=== PATIENT | male | born 1960 | race Caucasian/White ===

== ENCOUNTER 2020-12-16 05:40 | Emergency (ER) | payer OTHER, SELFPAY ==
--- NOTE | ~2020-12-16 | XR_ITS ---
EXAMINATION: XR chest 1V portable EXAM DATE: 12/16/2020 06:52 INDICATION: Cough, abdominal pain. TECHNIQUE: Portable AP frontal chest x-ray was obtained. There is no prior study for comparison. FINDINGS: Scattered bilateral lung nodular densities. Differential diagnosis includes pulmonary metas tases, acute airspace disease/pneumonia. Cardiomediastinal silhouette is normal. There is no pneumoth orax suspected. There are no pleural effusions. There are bony degenerative changes. There is a left- sided portacatheter. IMPRESSION: Scattered pulmonary metastases and/or infection. Clinical correlation. Reviewed, dictated and finalized at location D. RAL DISTRICT CLERK IMPRESSION: Scattered pulmonary metastases and/or infection. Clinical correlat ion.
--- NOTE | ~2020-12-16 | CT_ITS ---
EXAMINATION: CT chest abdomen pelvis wo con DATE: 12/16/2020 10:17 INDICATION: Left lower quadrant abdominal pain. Elevated serum creatinine. History of colon cancer. TECHNIQUE: Computed tomography (CT) of the chest, abdomen, and pelvis was performed without intraveno us contrast. Automated exposure control and iterative reconstruction technique were employed. Exam do se: 2410.13 mGy-cm total exam DLP. COMPARISON: December 16, 2020 portable AP chest: Scattered bilateral pulmonary nodular densities FINDINGS: CHEST CT: There are numerous pulmonary masses scattered throughout both lungs including all lobes, consistent w ith pulmonary metastatic disease. The largest disease is situated in the left lower lobe, measuring u p to 2.5 cm. Bilateral pleural effusions, minimal on the left, moderate on the right. There is associated compress angella atelectasis of the lower lobes, right greater than left. Normal heart size. Mild pericardial effusion. Coronary atherosclerotic calcification. No thoracic aor tic aneurysm. No hilar or mediastinal mass lesion or adenopathy. Calcified right hilar, subcarinal and lower right paraesophageal nodes and calcified right lower lobe pulmonary granuloma consistent with old pulmonary granulomatous disease. ABDOMEN/PELVIS CT: The liver is studded throughout with metastases. Diffuse pancreatic atrophy. No pancreatic mass lesion, calcification or ductal dilatation. Splenomegaly, spleen measuring up to 16 cm vertical dimension. Normal morphology of the adrenal glands. There is a pinpoint nonobstructing lower pole right renal calculus. Left renal atrophy and scarring. Normal caliber of the abdominal aorta. There is mild distal periaortic and aortocaval lymphadenopathy measuring up to 10.6 x 17.7 mm. There is mild bilateral common iliac adenopathy. There is prominent right lateral true pelvis mass or obtur ator lymphadenopathy, measuring up to 3.9 x 4.8 cm approximate maximal dimension. Mild ascites including fluid in both paracolic gutters. The urinary bladder is relatively evacuated. Bilateral fat-containing inguinal hernias, larger on the right. Diffuse idiopathic skeletal hyperostosis of the thoracic spine. Degenerative disc disease of the lowe r cervical spine. Multilevel degenerative disc disease of the lumbar spine, most pronounced at L5-S1. Prominent degener ative change of the lumbar apophyseal joints. Primary lumbar spinal stenosis. IMPRESSION: Extensive pulmonary and hepatic metastatic disease Periaortic and aortocaval lymphadenopathy and prominent apparent right obturator lymphadenopathy vers us lower 2 right pelvic mass Reviewed, dictated and finalized at [facility]. Reviewed, dictated and finalized at location A. CAB DRIVER IMPRESSION: Extensive pulmonary and hepatic metastatic disease Periaortic and aortocaval lymphadenopathy and prominent apparent right obturato r lymphadenopathy versus lower 2 right pelvic mass
[2020-12-16 05:45] VITALS: BP 102/82; PULSE 115; RESP 20; TEMP 36.8; O2SAT 98
--- NOTE | 2020-12-16 06:02 | ED.ABDPAIN ---
HPI - Abdominal Pain General Chief Complaint: Abdominal Pain Stated Complaint: adominal pain Time Seen by Provider: 12/16/20 07:02 Source: patient Mode of arrival: EMS Limitations: no limitations History of Present Illness HPI narrative: 60-year-old man with a history of colon cancer brought to the emergency department tonight for diarrhea and abdominal pain with increasing abdominal girth. Patient states that he has also had fever. Denies vomiting, rash and new cough or cold symptoms , dysuria, hematuria, blood in stools, black stools and chest pain. Patient states the coughing makes his abdominal pain worse. He denies any sick exposures. Was taking chemotherapy but he was placed on hold until he got stronger. He has not eaten since yesterday morning. MD elicited complaint: abdominal pain Onset (ago): day(s) (2) Pain Consistency: constant Location: diffuse Severity: severe Radiation: none Migration to: no migration Exacerbating factors: movement Relieving factors: rest Context: confirms other (colon cancer) Associated symptoms: nausea, diarrhea and fever Related Data Allergies Allergy/AdvReac Type Severity Reaction Status Date / Time glipizide Allergy Unknown Verified 12/18/20 16:59 Review of Systems Constitutional: Constitutional: Denies chills, Reports fever(s) and Reports weakness Eyes: Eyes: Denies change in vision and Denies photophobia ENT: Denies dysphagia, Denies nasal congestion and Denies sore throat Cardiovascular: Cardiovascular: Denies chest pain and Denies radiating jaw, neck or arm pain Respiratory: Respiratory: Reports cough and Denies dyspnea Gastrointestinal: Gastrointestinal: Reports abdominal pain, Reports diarrhea, Reports nausea and Denies vomiting Musculoskeletal: Musculoskeletal: Denies arthralgias and Denies joint swelling Integumentary/Breasts: Skin/Breast: Denies pruritus, Denies erythema and Denies rash Neurologic: Denies vertigo, Denies dizziness and Denies syncope Hematologic/Lymphatic: Hematologic/Lymphatic: Denies easy bleeding and Denies easy bruising Allergic/Immunologic: Allergic/Immunologic: Denies throat swelling and Denies tongue swelling PMFSH Past Medical History Medical History Cerebral aneurysm Colon cancer GERD (gastroesophageal reflux disease) Surgical History Surgical History H/O brain surgery Port-A-Cath in place Family History Family History Mother No significant family history Social History Social History Smoking status: Never smoker Alcohol intake: never Substance use: never Substance use type: does not use Spiritual care concerns: No Exam Const: General: alert Nutritional Appearance: obese Orientation/consciousness: patient oriented x3 Other: Moderate acute distress HENMT: Head: normal to inspection General nose exam: Normal nares present Face and sinus: normal facial exam Mouth: Yes moist mucous membranes Throat: posterior oropharynx normal Eyes: Conjunctivae: conjunctivae normal Pupils: Equal, round and reactive pupils present EOM: EOMs intact bilaterally Resp: Effort & Inspection: normal respiratory effort and not labored Auscultation: clear to auscultation bilaterally, no rales, no rhonchi and no wheezes Cardio: Rate: regular rate Rhythm: regular rhythm Heart sounds: no murmurs GI: Inspection: distended GI Palp: Yes Soft to palpation, Yes Tenderness to palpation present (GI) and Yes Palpable mass present (RUQ) Skin: General skin exam: normal color, no jaundice and no pallor Rashes: no rashes Neuro: General: patient oriented x3, moves all extremities, no focal motor deficits and CN's II-XI intact bilaterally Speech: normal speech Gait exam (Neuro): Normal gait present Extrem: General: normal to inspection and
[2020-12-16] MEDS: ONDANSETRON INJ 4 MG/2 ML VIAL 8 MG IV PUSH (06:18)
[2020-12-16] MEDS: PANTOPRAZOLE SODIUM IV 40 MG VIAL IV PUSH (06:20)
[2020-12-16] MEDS: HEPARIN SOD FLUSH 500 UNITS/5 ML SYRINGE (06:50)
[2020-12-16 06:55] VITALS: BP 111/76; PULSE 104; RESP 20; O2SAT 98
[2020-12-16] MEDS: SODIUM CHLORIDE 0.9% IV 1,000 ML 999 ML IV CONT (07:13)
--- NOTE | 2020-12-16 07:19 | PC.NURSE ---
Report to MARISELA Vasquez
[2020-12-16 08:05] LABS: Hematocrit 37.4 % (40.0-54.0); Hemoglobin 11.4 g/dL (14.0-18.0); Mean Corpuscular HGB Conc 30.5 g/dL (32.0-36.0); Mean Corpuscular Hemoglobin 26.2 pg (27.0-31.0); Mean Platelet Volume 9.6 fl (8.7-11.0); Platelet Count Result 177 K/mm3 (150-420); Red Blood Count 4.35 M/mm3 (4.70-6.10); Red Cell Distribution Width 15.4 % (11.6-14.4)
[2020-12-16 08:17] LABS: INR 1.4; Partial Thromboplastin Time 30.6 SEC (23.90-30.70)
[2020-12-16 08:23] LABS: White Blood Count 24.4 K/mm3 (4.8-10.8)
[2020-12-16 08:26] LABS: Alanine Aminotransferase 67 U/L (16-63); Albumin Level 1.8 g/dL (3.4-5.0); Alkaline Phosphatase 320 U/L (46-116); Anion Gap 10 mmol/L (8-16); Aspartate Amino Transferase 104 U/L (15-37); Bilirubin,Total 1.4 mg/dL (0.00-1.00); Blood Urea Nitrogen 28 mg/dL (7-18); Calcium 7.9 mg/dL (8.5-10.1); Carbon Dioxide 24 mmol/L (21-32); Chloride 98 mmol/L (98-108); Estimated CRCL calculation 42 ml/min; Estimated Glomerular Filt Rate 24; Glucose 203 mg/dL (70-99); Lipase 39 U/L (73-393); Osmolality Calculated 285 mOsm/kg (285-295); Potassium 5.3 mmol/L (3.5-5.1); Sodium 132 mmol/L (136-145); Total Protein 6.6 g/dL (6.4-8.2)
[2020-12-16 08:30] LABS: Band Neutrophils Percent 3 % (0-6); Basophils Percent Manual 0 % (0-1); Eosinophils Absolute Manual 0.97 K/mm3 (0.02-0.5); Eosinophils Percent Manual 4 % (1-6); Lymphocytes Absolute Manual 2.19 K/mm3 (1.1-4.5); Lymphocytes Percent Manual 9 % (18-44); Monocytes Absolute Manual 1.22 K/mm3 (0.1-0.90); Monocytes Percent Manual 5 % (3-9); Neutrophils Percent Manual 79 % (46-73); Platelet Estimate Adequate (Adequate); Total Cells Counted 100
[2020-12-16 08:36] LABS: SARS-CoV-2 Ag Negative (Negative)
--- NOTE | 2020-12-16 10:10 | PC.NURSE ---
PT STATES HE IS UNABLE TO URINATE AND REFUSES URINARY STRAIGHT CATHETER TO OBTAIN URINE SAMPLE.
[2020-12-16] MEDS: SODIUM CHLORIDE 0.9% IV 1,000 ML 250 ML IV CONT (10:17)
[2020-12-16] MEDS: HYDROmorphone HCL INJ (*CRX) 2 MG/ML VIAL 1 MG IM (10:17)
[2020-12-16 11:03] LABS: Reflex Lactic Acid Yes or No Add Lactic
[2020-12-16 12:14] VITALS: O2SAT 98
--- NOTE | 2020-12-16 12:27 | ED.ABDPAIN ---
HPI - Abdominal Pain General Chief Complaint: Abdominal Pain Stated Complaint: adominal pain Time Seen by Provider: 12/16/20 07:02 Source: patient and family Mode of arrival: ambulatory Limitations: no limitations History of Present Illness MD elicited complaint: abdominal pain and other (Patient comes in with history of metastatic colon cancer. He complains of vague abdominal pain and not feeling well, but with no specific symptoms. ) Onset (ago): day(s) (2) Pain Consistency: constant Location: diffuse Severity: severe Quality: aching and fullness Radiation: none Migration to: no migration Exacerbating factors: movement Relieving factors: rest Context: confirms other (colon cancer) Associated symptoms: nausea, diarrhea and fever Related Data Home Medications Medication Instructions Recorded Confirmed aspirin 325 mg PO DAILY 12/16/20 12/16/20 ondansetron 8 mg PO Q8H PRN 12/16/20 12/16/20 pantoprazole 40 mg PO QAM 12/16/20 12/16/20 Allergies Allergy/AdvReac Type Severity Reaction Status Date / Time glipizide Allergy Unknown Verified 12/16/20 05:56 Review of Systems Review of Systems: All systems reviewed & are unremarkable except as noted in HPI and below Constitutional: Constitutional: Reports no additional constitutional complaints Eyes: Eyes: Reports no additional eye complaints ENT: Reports system reviewed and no additional complaints, except as documented Cardiovascular: Cardiovascular: Reports no additional cardiovascular complaints Respiratory: Respiratory: Reports no additional respiratory complaints Gastrointestinal: Gastrointestinal: Reports as per HPI (complains of vague feeling of fullness and gas pain, and feeling bloated) Genitourinary: Genitourinary: Reports no additional male genitourinary complaints Musculoskeletal: Musculoskeletal: Reports no additional musculoskeletal complaints Integumentary/Breasts: Skin/Breast: Reports system reviewed and no additional complaints, except as docu Neurologic: Reports system reviewed and no additional complaints, except as documented Psychiatric: Psychiatric: Reports no additional psychiatric complaints Endocrine: Endocrine: Reports no additional endocrine complaints Hematologic/Lymphatic: Hematologic/Lymphatic: Reports no additional hematologic/lymphatic complaints Allergic/Immunologic: Allergic/Immunologic: Reports no additional allergic/immunologic complaints PMFSH Past Medical History Medical History Cerebral aneurysm Colon cancer GERD (gastroesophageal reflux disease) Surgical History Surgical History H/O brain surgery Port-A-Cath in place Family History Family History Mother No significant family history Social History Social History Smoking status: Never smoker Substance use: never Living arrangements: with family Exam Narrative: Exam Narrative: Patient comes in complaining of vague abdominal discomfort, and feeling bloated. He has no other significant complaints. Const: General: no acute distress Orientation/consciousness: patient oriented x3 HENMT: Head: normal to inspection Ears: external ears normal General nose exam: Normal external nose present Face and sinus: normal facial exam Mouth: Yes Normal oral and palatal mucosa present and Yes moist mucous membranes Throat: posterior oropharynx normal Eyes: Conjunctivae: conjunctivae normal Pupils: Equal, round and reactive pupils present Neck: Neck: normal visual inspection and no lymphadenopathy Chest: Chest palpation & inspection: normal inspection of the chest Resp: Effort & Inspection: normal respiratory effort Auscultation: clear to auscultation bilaterally Cardio: Rate: regular rate Rhythm: regular rhythm GI: GI Palp: Yes Soft to palpation (large
[2020-12-16 13:04] VITALS: BP 130/70; PULSE 90; RESP 15; O2SAT 92
== END 2020-12-16 13:40 | disposition home or self-care (01) ==
PROVIDERS: Emergency Provider Emergency Medicine; PCP Family Medicine
DX: C18.9 Malignant neoplasm of colon, unspecified (principal); A41.9 Sepsis, unspecified organism; J18.9 Pneumonia, unspecified organism; N17.9 Acute kidney failure, unspecified
CPT/HCPCS: 36415; 71045; 71250; 74176; 80053; 83605; 83690; 85025; 85610; 85730; 87426; 96361; 96372; 96374; 96375; 99283; 99284; C9113; C9803; J1170; J2405; J7030

== ENCOUNTER 2020-12-18 16:22 | Inpatient (IN) | payer OTHER, SELFPAY ==
--- NOTE | ~2020-12-18 | XR_ITS ---
XR chest 1V portable 12/18/2020 18:11 Indication: Shortness of breath Procedure: AP portable chest Comparison: 12/16/2020 Findings: There are scattered nodular densities of the mid and lower lung zone, compatible with known metastases. Pleural effusions not appreciated on current study. Heart size normal. No pleural effusi on or pneumothorax. Portacatheter tip in the SVC. Impression: 1: Scattered bilateral pulmonary nodules, consistent with metastatic disease. Reviewed, dictated and finalized at location A. T SPECIALIST PRODUCT DEMONSTRATOR Impression: 1: Scattered bilateral pulmonary nodules, consistent with metastatic disease.
[2020-12-18 16:52] VITALS: BP 109/65; PULSE 102; RESP 20; TEMP 36.1; O2SAT 97
[2020-12-18] MEDS: SODIUM CHLORIDE 0.9% IV 1,000 ML 999 ML IV CONT (17:17)
[2020-12-18] MEDS: MORPHINE SULFATE (*CRX) 4 MG/ML INJ IV PUSH ×2 (17:17→21:47)
[2020-12-18 17:38] LABS: Hematocrit 43.5 % (40.0-54.0); Mean Corpuscular HGB Conc 32.2 g/dL (32.0-36.0); Mean Corpuscular Hemoglobin 26.7 pg (27.0-31.0); Mean Platelet Volume 9.9 fl (8.7-11.0); Platelet Count Result 228 K/mm3 (150-420); Red Blood Count 5.24 M/mm3 (4.70-6.10)
[2020-12-18 17:58] LABS: Lactic Acid Reflex 8.7 mmol/L (0.4-2.0)
[2020-12-18 18:05] LABS: Albumin Level 1.8 g/dL (3.4-5.0); Alkaline Phosphatase 429 U/L (46-116); Anion Gap 23 mmol/L (8-16); Bilirubin,Total 1.5 mg/dL (0.00-1.00); Blood Urea Nitrogen 74 mg/dL (7-18); Calcium 8.1 mg/dL (8.5-10.1); Carbon Dioxide 10 mmol/L (21-32); Chloride 95 mmol/L (98-108); Estimated CRCL calculation 24 ml/min; Estimated Glomerular Filt Rate 12; Glucose 251 mg/dL (70-99); Lipase 125 U/L (73-393); Osmolality Calculated 295 mOsm/kg (285-295); Potassium 5.6 mmol/L (3.5-5.1); Sodium 128 mmol/L (136-145); Total Protein 6.7 g/dL (6.4-8.2); Troponin I 10.6 ng/L (0.00-60.4)
[2020-12-18 18:07] LABS: Alanine Aminotransferase > 1000 U/L (16-63); Aspartate Amino Transferase > 796 U/L (15-37)
[2020-12-18 18:10] LABS: Add Urine Microscopic? YES; Appearance Urine Sl Cloudy (Clear); Bilirubin Urine 1+ (Negative); Blood Urine Negative (Negative); Color Urine Other (Yellow); Glucose Urine UA Negative (Negative); Ketones Urine Negative (Negative); Leukocyte Esterase Ur Negative (Negative); Nitrate Urine Negative (Negative); Protein Urine Negative (Negative); Specific Grav Ur >= 1.030 (1.010-1.020)
[2020-12-18 18:13] LABS: White Blood Count 41.6 K/mm3 (4.8-10.8)
[2020-12-18 18:16] LABS: Neutrophils Percent Manual 77 % (46-73); Total Cells Counted 100
[2020-12-18 18:17] LABS: Band Neutrophils Percent 10 % (0-6); Basophils Absolute Manual 0.41 K/mm3 (0-0.1); Basophils Percent Manual 1 % (0-1); Eosinophils Absolute Manual 0.83 K/mm3 (0.02-0.5); Eosinophils Percent Manual 2 % (1-6); Lymphocytes Absolute Manual 2.49 K/mm3 (1.1-4.5); Lymphocytes Percent Manual 6 % (18-44); Metamyelocytes Percent 1 %; Monocytes Absolute Manual 1.24 K/mm3 (0.1-0.90); Monocytes Percent Manual 3 % (3-9); Neutrophils Absolute Manual 36.19 K/mm3 (1.3-6.7); Platelet Estimate Adequate (Adequate)
[2020-12-18 18:22] VITALS: BP 121/64; PULSE 101; RESP 20; O2SAT 97
--- NOTE | 2020-12-18 18:22 | ED.ABDPAIN ---
HPI - Abdominal Pain General Chief Complaint: Abdominal Pain Stated Complaint: AMB Source: patient and EMS Mode of arrival: ambulatory Limitations: physical limitation History of Present Illness HPI narrative: this is a 60-year-old male morbidly obese, lives with his mother presents to the emergency department via EMS with some abdominal pain with some watery diarrhea, his abdominal pain started about 4 days ago, was seen on the December with similar complaints. Currently is having diffuse abdominal pain with no nausea or vomiting no chest pain no shortness of breath but has loose stools. The patient currently feels warm but is temperature is 97 ?, patient with a blood pressure of 121/64 with heart rate of 101. Patient had a workup with some CT abdomen 2 days ago which did show that he has some metastatic disease to lung and liver with some scattered nodules in his lungs. The patient lives at home with his mother had ambulate very well and currently having pain in his abdomen that he rates about a 7/10 with no dysuria no hematuria no flank pain. MD elicited complaint: abdominal pain Pertinent past history: other ( History of lung cancer with metastatic disease) Onset (ago): month(s) Pain Consistency: constant Location: diffuse Severity: moderate Pain scale (0-10): 7 Quality: aching Radiation: none Migration to: no migration Exacerbating factors: nothing Relieving factors: nothing Associated symptoms: diarrhea Related Data Home Medications Medication Instructions Recorded Confirmed aspirin 325 mg PO DAILY 12/16/20 12/18/20 ondansetron 8 mg PO Q8H PRN 12/16/20 12/18/20 pantoprazole 40 mg PO QAM 12/16/20 12/18/20 Allergies Allergy/AdvReac Type Severity Reaction Status Date / Time glipizide Allergy Unknown Verified 12/18/20 16:59 Review of Systems Review of Systems: All systems reviewed & are unremarkable except as noted in HPI and below PMFSH Past Medical History Medical History Cerebral aneurysm Colon cancer GERD (gastroesophageal reflux disease) Surgical History Surgical History H/O brain surgery Port-A-Cath in place Family History Family History Mother No significant family history Social History Social History Smoking status: Never smoker Substance use: never Exam Const: General: no acute distress Orientation/consciousness: patient oriented x3 HENMT: Head: normal to inspection Ears: external ears normal Eyes: Conjunctivae: conjunctivae normal Pupils: Equal, round and reactive pupils present EOM: EOMs intact bilaterally Direct Ophthalmoscopy: no photophobia Neck: Neck: normal visual inspection, no lymphadenopathy and no meningeal signs Chest: Chest palpation & inspection: normal inspection of the chest Resp: Effort & Inspection: normal respiratory effort Auscultation: diminished lung sounds Cardio: Rate: regular rate Rhythm: regular rhythm GI: GI Palp: Yes Tenderness to palpation present (GI), Yes Guarding due to palpation present (GI) and Yes Rebound tenderness present Percussion: Yes normal to percussion Urinary Catheter: Urinary Catheter: patent and draining Back/Spine/Pelvis: Back: no CVA tenderness Skin: General skin exam: normal color Rashes: no rashes Neuro: General: patient oriented x3 and moves all extremities Extrem: General: normal to inspection and no pedal edema Psych: Mental Status: mental status grossly normal Course Course Emergency Course: Reassessment of patient patient did had a CT scan that was performed of his abdomen 2 days ago, will not repeat a CT scan during this ER visit advised the patient that we will be admitting him appears to be septic and reviewed his blood work and his x-ray and will continue IV fluids patient
[2020-12-18 18:25] LABS: Bacteria Urine Trace /hpf; RBC Urine 0-2 /hpf (0-2); Squamous Epithelial Cell Urine Few /hpf (Few); WBC Urine 0-3 /hpf (0-3)
[2020-12-18 18:41] LABS: BNP 187 pg/mL (0-100)
--- NOTE | 2020-12-18 18:58 | PC.NURSE ---
called miguel rn, charge nurse for bed placement, pt to go to room 227. awaiting to give report.
[2020-12-18 19:01] VITALS: BP 92/63; PULSE 102; RESP 20; TEMP 36.9; O2SAT 97
--- NOTE | 2020-12-18 19:28 | PC.NURSE ---
pt to floor per stretcher with RN and tech staff.
[2020-12-18 19:58] VITALS: BMI 40.9
[2020-12-18 20:00] VITALS: BP 85/66; PULSE 98; RESP 20; TEMP 35.4; O2SAT 99
[2020-12-18 20:34] LABS: Reflex Lactic Acid Yes or No Add Lactic
[2020-12-18 21:53] LABS: Glucose Point of Care 257 (65-105)
[2020-12-18] MEDS: LACTATED RINGERS 1,000 ML 100 ML IV CONT (21:57)
--- NOTE | 2020-12-18 22:02 | ADMGEN ---
This patient, Aamir Shin, was admitted to 2nd Floor Room 227-2. Patient/family oriented to hospital policies and general routines including ID bracelet, bed and alarms, visiting hours, pain management, procedures, bathroom and other care routines, personal items, smoking policy, room service/diet, and visiting hours. Pt has phone, manager bridge, glasses and top/bottom dentures. Pt requests to go to a skilled nursing on hospice as his mother can no longer care for him. Information on how to activate the Rapid Response Team has been discussed. Patient/Family are encouraged to report perceived risks to care and to ask questions if they do not understand what they are told or what they should do.
[2020-12-18 22:09] LABS: Lactic Acid 8.8 mmol/L (0.4-2.0)
[2020-12-19] VITALS: BP 116/66; PULSE 102; RESP 20; TEMP 36.7; O2SAT 95
[2020-12-19 04:00] VITALS: BP 107/77; PULSE 105; RESP 20; TEMP 36.7; O2SAT 96
[2020-12-19 07:30] VITALS: BP 116/59; PULSE 107; RESP 18; TEMP 35.7; O2SAT 97
[2020-12-19 07:47] LABS: Glucose Point of Care 208 (65-105)
[2020-12-19] MEDS: LACTATED RINGERS 1,000 ML 100 ML IV CONT (08:18)
[2020-12-19] MEDS: PANTOPRAZOLE 40 MG TABLET PO (08:19)
[2020-12-19] MEDS: ASPIRIN 325 MG ENTERIC TABLET PO (08:19)
[2020-12-19 08:24] LABS: Hematocrit 41.6 % (40.0-54.0); Hemoglobin 13.1 g/dL (14.0-18.0); Mean Corpuscular HGB Conc 31.5 g/dL (32.0-36.0); Mean Corpuscular Volume 85.8 fL (78.0-102.0); Mean Platelet Volume 9.6 fl (8.7-11.0); Platelet Count Result 133 K/mm3 (150-420); Red Blood Count 4.85 M/mm3 (4.70-6.10); Red Cell Distribution Width 16.3 % (11.6-14.4)
[2020-12-19 08:29] LABS: White Blood Count 38.9 K/mm3 (4.8-10.8)
--- NOTE | 2020-12-19 08:30 | PC.NURSE ---
Patient awake, alert to self only. Does not follow commands at all. Patient unable to drink from straw. Able to take a couple bites of oatmeal with full assist, swallowed okay, patient did hold liquid in mouth for short amount of time. No coughing noted after swallowing. Patient tried spitting out medication. Answered yes and no questions at time, otherwise does not answer questions. Patient has flat affect.
[2020-12-19 08:44] LABS: Lactic Acid Reflex 5.7 mmol/L (0.4-2.0)
[2020-12-19 09:00] LABS: Albumin Level 1.8 g/dL (3.4-5.0); Alkaline Phosphatase 434 U/L (46-116); Anion Gap 19 mmol/L (8-16); Bilirubin,Total 1.7 mg/dL (0.00-1.00); Blood Urea Nitrogen 83 mg/dL (7-18); Calcium 7.9 mg/dL (8.5-10.1); Carbon Dioxide 13 mmol/L (21-32); Chloride 95 mmol/L (98-108); Estimated CRCL calculation 22 ml/min; Estimated Glomerular Filt Rate 12; Glucose 211 mg/dL (70-99); Osmolality Calculated 295 mOsm/kg (285-295); Potassium 6.2 mmol/L (3.5-5.1); Sodium 127 mmol/L (136-145); Total Protein 6.4 g/dL (6.4-8.2)
[2020-12-19 09:01] LABS: Alanine Aminotransferase > 1000 U/L (16-63); Aspartate Amino Transferase > 796 U/L (15-37)
--- NOTE | 2020-12-19 09:02 | PC.NURSE ---
Ze Chou SULFUR BURNER notified of critical creatnine of 5.0.
[2020-12-19 09:03] LABS: Band Neutrophils Percent 4 % (0-6); Basophils Percent Manual 0 % (0-1); Eosinophils Absolute Manual 0.38 K/mm3 (0.02-0.5); Eosinophils Percent Manual 1 % (1-6); Lymphocytes Absolute Manual 5.83 K/mm3 (1.1-4.5); Lymphocytes Percent Manual 15 % (18-44); Metamyelocytes Percent 2 %; Monocytes Absolute Manual 1.16 K/mm3 (0.1-0.90); Monocytes Percent Manual 3 % (3-9); Myelocytes Percent 1 %; Neutrophils Absolute Manual 30.34 K/mm3 (1.3-6.7); Neutrophils Percent Manual 74 % (46-73); Nucleated Red Blood Cells 2 %; Platelet Estimate Adequate (Adequate); Total Cells Counted 100
[2020-12-19] MEDS: SODIUM CHLORIDE 0.9% IV 500 ML 999 ML IV CONT (10:06)
[2020-12-19] MEDS: SODIUM CHLORIDE 0.9% IV 1,000 ML 150 ML IV CONT ×2 (11:11→18:05)
[2020-12-19 11:20] LABS: Reflex Lactic Acid Yes or No Add Lactic
--- NOTE | 2020-12-19 11:31 | ECG_ITS ---
Measurements Intervals Economy Rate: 106 P: 46 [place]: 185 QRS: -53 QRSD: 96 T: 71 QT: 338 QTc: 450 Interpretive Statements SINUS TACHYCARDIA LEFT ANTERIOR FASCICULAR BLOCK POOR R WAVE PROGRESSION, ANTERIOR LEADS ABNORMAL ECG Electronically Signed On 12-19-2020 12:19:44 DIRECTOR ACCOUNT MANAGEMENT by Miguel Angel Fernandez D.O.
[2020-12-19 11:42] LABS: Glucose Point of Care 216 (65-105)
[2020-12-19] MEDS: SODIUM POLYSTYRENE SULFONONATE 15 GM/60 ML BTL 30 GM PO (12:12)
--- NOTE | 2020-12-19 12:15 | PC.NURSE ---
Patient was able to drink kayexalate with full assist from nurse. Patient unable to eat any of lunch. This nurse attempted to give patient bite of grilled cheese and patient was unable to take bite. ULTIMATE HOOPS TRAINER notified.
[2020-12-19 12:19] LABS: Lactic Acid 5.3 mmol/L (0.4-2.0)
[2020-12-19 12:50] VITALS: BP 120/67; PULSE 105; RESP 22; TEMP 36.8; O2SAT 96
--- NOTE | 2020-12-19 13:49 | PM.IMHP ---
H&P: HPI History of Present Illness Date/Time: 12/19/20 13:49 Chief Complaint: He complains of feeling gassy, and that his abdomen is swollen. Narrative: Aamir Shin is a 60 year old male who I saw Dec 16, 2020. He came in at that time with complaints of vague abdominal discomfort and feeling he was bloated with lots of gas. I had a discussion with the patient and his mother. His mother, Beth Shin, is his decision maker for health care. It appears that he is in acute renal failure. His mother has decided not to treat this, except for medically. She understands that without intervention, and probably dialysis he will within 10 days or so. Review of Systems Constitutional: Constitutional: Reports fatigue and Reports lethargy Eyes: Eyes: Reports no additional eye complaints ENT: Reports system reviewed and no additional complaints, except as documented Cardiovascular: Cardiovascular: Reports no additional cardiovascular complaints Respiratory: Comments: mild shortness of breath Gastrointestinal: Gastrointestinal: Reports bloating Genitourinary: Genitourinary: Reports no additional male genitourinary complaints Musculoskeletal: Musculoskeletal: Reports no additional musculoskeletal complaints Integumentary/Breasts: Skin/Breast: Reports system reviewed and no additional complaints, except as docu Neurologic: Reports system reviewed and no additional complaints, except as documented Psychiatric: Psychiatric: Reports no additional psychiatric complaints PMFSH Past Medical History Medical History Cerebral aneurysm Colon cancer GERD (gastroesophageal reflux disease) Surgical History Surgical History H/O brain surgery Port-A-Cath in place Family History Family History Mother No significant family history Social History Social History Smoking status: Never smoker Alcohol intake: never Substance use: never Substance use type: does not use Spiritual care concerns: No Meds Home Medications and Allergies Home Medications Medication Instructions Recorded Confirmed Type morphine 5 mg PO Q4H #5 ml 12/20/20 Rx Allergies Allergy/AdvReac Type Severity Reaction Status Date / Time glipizide Allergy Unknown Verified 12/18/20 16:59 Vital Signs Vital Signs - 24 hr 12/18/20 16:52 12/18/20 18:22 12/18/20 19:01 Temperature 36.1 C L 36.9 C Pulse Rate 102 H 101 H 102 H Respiratory Rate 20 20 20 Blood Pressure 109/65 121/64 92/63 L Pulse Oximetry 97 97 97 12/18/20 20:00 12/19/20 00:00 12/19/20 04:00 Temperature 35.4 C L 36.7 C 36.7 C Pulse Rate 98 102 H 105 H Respiratory Rate 20 20 20 Blood Pressure 85/66 L 116/66 107/77 Pulse Oximetry 99 95 96 12/19/20 07:30 Temperature 35.7 C L Pulse Rate 107 H Respiratory Rate 18 Blood Pressure 116/59 L Pulse Oximetry 97 Exam Narrative: Exam Narrative: This gentleman appears drowsy, but he will arouse with shaking or shouting at him. He appears comfortable and in no distress. Const: General: no acute distress HENMT: Mouth: Yes moist mucous membranes Eyes: General: appearance normal, both eyes and all related structures Neck: Neck: supple Resp: Effort & Inspection: normal respiratory effort Auscultation: clear to auscultation bilaterally Cardio: Rate: regular rate Rhythm: regular rhythm GI: GI Palp: Yes Soft to palpation (non tender) Skin: General skin exam: normal color Neuro: Other: speech is difficult to understand, but I believe this is his baseline Psych: Mental Status: mental status grossly normal H&P: Results Labs Labs: Short CBC 12/18/20 12/19/20 Range/Units 17:25 08:04 WBC 41.6 H* 38.9 H* (4.8-10.8) K/mm3 Hgb 14.0 13.1 L (14.0-18.0) g/dL Hct 43.5 41.6 (40.0-54.0) % Plt Coun
[2020-12-19 14:25] LABS: SARS-CoV-2 Ag Negative (Negative)
[2020-12-19 15:50] VITALS: BP 104/49; PULSE 106; RESP 22; TEMP 36.8; O2SAT 95
[2020-12-19 17:05] LABS: Glucose Point of Care 195 (65-105)
[2020-12-19 20:00] VITALS: BP 100/62; PULSE 102; RESP 20; TEMP 36.1; O2SAT 95
[2020-12-19 20:43] LABS: Glucose Point of Care 218 (65-105)
[2020-12-20] VITALS: BP 95/60; PULSE 102; RESP 20; TEMP 35.9; O2SAT 99
[2020-12-20] MEDS: SODIUM CHLORIDE 0.9% IV 1,000 ML 150 ML IV CONT ×2 (01:58→09:20)
[2020-12-20 04:00] VITALS: BP 101/53; PULSE 60; RESP 20; TEMP 35.8; O2SAT 97
[2020-12-20] MEDS: SODIUM CHLORIDE 0.9% IV 1,000 ML 999 ML IV CONT (07:50)
[2020-12-20 08:00] VITALS: BP 86/56; PULSE 103; RESP 28; TEMP 36.1; O2SAT 96
[2020-12-20 08:09] LABS: Glucose Point of Care 201 (65-105)
[2020-12-20 09:17] LABS: Hematocrit 34.5 % (40.0-54.0); Hemoglobin 11.2 g/dL (14.0-18.0); Mean Corpuscular HGB Conc 32.5 g/dL (32.0-36.0); Mean Corpuscular Volume 83.1 fL (78.0-102.0); Mean Platelet Volume 10.9 fl (8.7-11.0); Platelet Count Result 111 K/mm3 (150-420); Red Blood Count 4.15 M/mm3 (4.70-6.10)
[2020-12-20 09:22] LABS: White Blood Count 26.3 K/mm3 (4.8-10.8)
[2020-12-20 09:37] LABS: Albumin Level 1.5 g/dL (3.4-5.0); Alkaline Phosphatase 551 U/L (46-116); Anion Gap 20 mmol/L (8-16); Bilirubin,Total 1.8 mg/dL (0.00-1.00); Blood Urea Nitrogen 108 mg/dL (7-18); Calcium 6.9 mg/dL (8.5-10.1); Carbon Dioxide 11 mmol/L (21-32); Chloride 98 mmol/L (98-108); Estimated CRCL calculation 18 ml/min; Estimated Glomerular Filt Rate 10; Glucose 205 mg/dL (70-99); Osmolality Calculated 308 mOsm/kg (285-295); Sodium 129 mmol/L (136-145); Total Protein 5.6 g/dL (6.4-8.2)
[2020-12-20 09:39] LABS: Alanine Aminotransferase > 1000 U/L (16-63); Aspartate Amino Transferase > 796 U/L (15-37); Potassium 6.9 mmol/L (3.5-5.1)
[2020-12-20 09:41] LABS: Band Neutrophils Percent 4 % (0-6); Eosinophils Absolute Manual 0.26 K/mm3 (0.02-0.5); Eosinophils Percent Manual 1 % (1-6); Lymphocytes Absolute Manual 3.15 K/mm3 (1.1-4.5); Lymphocytes Percent Manual 12 % (18-44); Metamyelocytes Percent 1 %; Monocytes Absolute Manual 1.05 K/mm3 (0.1-0.90); Monocytes Percent Manual 4 % (3-9); Neutrophils Absolute Manual 21.56 K/mm3 (1.3-6.7); Neutrophils Percent Manual 78 % (46-73); Nucleated Red Blood Cells 3 %; Total Cells Counted 100
--- NOTE | 2020-12-20 09:41 | PM.DS ---
DS: Admitting Diagnosis Admitting Diagnosis Admitting Diagnosis: sepsis pneumonia acute renal failure metastatic colon cancer to liver and lung DS: Discharge Diagnosis Discharge Diagnosis (1) Sepsis: Qualifiers: Sepsis acute organ dysfunction status: unspecified Sepsis type: sepsis due to unspecified organism Qualified Code(s): A41.9 - Sepsis, unspecified organism Code(s): A41.9 - Sepsis, unspecified organism Status: Acute Assessment and Plan: patient has colon cancer with metastasis to the liver and lungs, acute renal failure, pneumonia, elevated white count which is lower today at 26.3, upper extremities very cold to touch, patient is being discharged to a snf on hospice (2) Metastatic disease: Qualifiers: Area of secondary neoplastic involvement: unspecified site Qualified Code(s): C79.9 - Secondary malignant neoplasm of unspecified site Code(s): C79.9 - Secondary malignant neoplasm of unspecified site Status: Acute Assessment and Plan: patient has a history of colon cancer and had gone through chemotherapy, recent CT shows metastasis to liver and lung, CT of brain was not done however possible metastasis to the brain as patient is minimally responsive to voice with only opening eyes and painful stimulus and no verbal communication, mother is Cardene and elected to have patient hospice care and no treatment for his condition due to progressing cancer (3) Acute renal failure: Qualifiers: Acute renal failure type: unspecified Qualified Code(s): N17.9 - Acute kidney failure, unspecified Code(s): N17.9 - Acute kidney failure, unspecified Status: Acute Assessment and Plan: BUN and creatinine continue to worsen regardless of IV fluids, BUN today is 108 creatinine 6.01, not making any urine (4) Electrolyte imbalance: Code(s): E87.8 - Other disorders of electrolyte and fluid balance, not elsewhere classified Status: Acute Assessment and Plan: patient was given IV fluids for sodium and chloride and Kayexalate for elevated potassium however patient is not having much in the form of stool, no bowel sounds (5) Pneumonia: Qualifiers: Laterality: unspecified laterality Lung location: unspecified part of lung Pneumonia type: due to unspecified organism Qualified Code(s): J18.9 - Pneumonia, unspecified organism Code(s): J18.9 - Pneumonia, unspecified organism Status: Acute Assessment and Plan: patient was started on Rocephin and azithromycin in the ER which continued on the floor (6) Hospice care: Code(s): Z51.5 - Encounter for palliative care Status: Acute Assessment and Plan: mother who is the guardian for this patient elected to have the patient put on hospice and patient is going to be transferred to [facility] for hospice care DS: Summary Hospital Course Hospital Course: patient has terminal metastatic cancer being transferred to [facility] for end of life hospice care Time Spent with Patient Time attestation: Total time spent providing and/or coordinating discharge services: < 30 minutes Exam Const: General: comfortable, no acute distress and patient obtunded Nutritional Appearance: obese morbidly obese Resp: Effort & Inspection: normal respiratory effort Auscultation: clear to auscultation bilaterally Cardio: Rate: regular rate Heart sounds: S1 normal heart sound present and S2 normal heart sound present GI: Inspection: distended GI Palp: Yes Soft to palpation and No Tenderness to palpation present (GI) Auscultation: absent bowel sounds Urinary Catheter: Urinary Catheter: patent and draining (approximately 20 mL in 24 hours) Skin: General skin exam: pallor (hypothermic, upper extremities cold to touch) Neuro: General: patient obtunded and other (no verbal response, eye opening to voice, slight movement to painful stimu) Extrem: General
[2020-12-20 12:00] VITALS: BP 70/40; PULSE 99; RESP 26; TEMP 36.3; O2SAT 97
--- NOTE | 2020-12-20 14:15 | PC.NURSE ---
Report called to Jayne at [facility] by SHANNON Chou. [facility] to go with [facility]. Transferred by [facility] service. Patient transferred from bed to stretcher via hover mat. Patient diplays no discomfort or distress.
--- NOTE | 2020-12-22 11:05 | PC.NURSE ---
[facility] states they received and understood the discharge instructions.
== END 2020-12-20 14:15 | disposition hospice, inpatient (51) | DRG 720 ==
LOC: CHSED 18:33 → CHS2ND 18:54
PROVIDERS: Emergency Medicine; Nurse Practitioner Family; Admitting Provider Emergency Medicine; Emergency Provider Emergency Medicine; PCP Family Medicine; Visit Provider Emergency Medicine
DX: A41.9 Sepsis, unspecified organism (principal); J18.9 Pneumonia, unspecified organism; C78.7 Secondary malignant neoplasm of liver and intrahepatic bile duct; C78.02 Secondary malignant neoplasm of left lung; C78.01 Secondary malignant neoplasm of right lung; C18.9 Malignant neoplasm of colon, unspecified; N17.9 Acute kidney failure, unspecified; K21.9 Gastro-esophageal reflux disease without esophagitis; Z98.890 Other specified postprocedural states; E87.8 Other disorders of electrolyte and fluid balance, not elsewhere classified; Z51.5 Encounter for palliative care; Z20.828 Contact with and (suspected) exposure to other viral communicable diseases
CPT/HCPCS: 36415; 71045; 80053; 81001; 82948; 83605; 83690; 83880; 84484; 85025; 87426; 93005; 96361; 96365; 96375; 99285; A9270; C9803; J0456; J0696; J1815; J2270; J7030; J7040; J7120